=== PATIENT | female | born 1990 | race African-American/Black ===

== ENCOUNTER 2018-05-28 04:29 | Emergency (ER) | payer MEDICAID ==
[~2018-05-28] VITALS: Ht 149.9 cm; Wt 64.0 kg
[2018-05-28] MEDS ORDERED: ONDANSETRON HCL 4MG/2ML INJ IV ONE (05:45)
[2018-05-28 06:18] LABS: BASOPHILS % 0.7 % (0.0-2.0); EOSINOPHILS % 1.6 % (0.0-5.0); HEMATOCRIT. 39.4 % (36.0-48.0); HEMOGLOBIN. 12.9 g/dL (12.0-16.0); LYMPHOCYTES % 26.6 % (20.0-50.0); MEAN CORPUSCULAR HEMOGLOBIN 28.4 pg (28.0-32.0); MEAN CORPUSCULAR VOLUME 86.4 fL (81.0-99.0); MEAN PLATELET VOLUME 9.6 fl (7.4-10.4); MONOCYTES % 7.3 % (2.0-8.0); NEUTROPHILS % 63.8 % (40.0-76.0); PLATELET 290 x1000/uL (130-400); RED BLOOD CELL COUNT 4.56 mill/uL (4.2-5.4); RED CELL DISTRIBUTION WIDTH 14.6 % (11.6-14.6)
[2018-05-28 06:19] LABS: CLARITY URINE CLEAR (CLEAR); COLOR URINE YELLOW (YELLOW); KETONES URINE NEGATIVE (NEGATIVE); LEUKOCYTE ESTERASE URINE NEGATIVE (NEGATIVE); NITRITE URINE NEGATIVE (NEGATIVE); OCCULT BLOOD URINE NEGATIVE (NEGATIVE); PROTEIN URINE NEGATIVE (NEGATIVE); SPECIFIC GRAVITY URINE 1.025 (1.005-1.030)
[2018-05-28 06:24] LABS: PROTHROMBIN TIME 10.5 sec (9.1-11.1)
[2018-05-28 06:25] LABS: CHLORIDE 105 mEq/L (98-107)
[2018-05-28 06:38] LABS: B-HCG QUANTITATIVE < 1 mIU/mL (<3)
[2018-05-28] MEDS ORDERED: KETOROLAC 15MG/ML VIAL IV ONE (07:00)
[2018-05-28 08:39] VITALS: BP 115/68
== END 2018-05-28 08:40 | disposition home or self-care (01) ==
LOC: ER 07:11
DX: R10.32 Left lower quadrant pain (principal); J45.909 Unspecified asthma, uncomplicated
CPT/HCPCS: 36415; 76830; 76856; 80053; 81003; 83690; 84702; 85025; 85610; 96374; 96375; 99285; J1885; J2405